=== PATIENT | male | born 1970 | race Caucasian/White ===

== ENCOUNTER → 2019-08-19 | Outpatient (CLI) | payer BC ==
[~2019-08-19] MED LIST: GBPN600T; HYDR-3583 PO; NAPR-243 PO; NF-ROPIN4T; TBR.3OP51 OP
== END ==
LOC: CARD 08:30
PROVIDERS: ATTEND Internal Medicine Cardiovascular Disease
DX: E78.5 Hyperlipidemia, unspecified (principal); I51.7 Cardiomegaly; R07.89 Other chest pain; Z82.49 Family history of ischemic heart disease and other diseases of the circulatory system
CPT/HCPCS: 93306

== ENCOUNTER → 2019-08-20 | Outpatient (CLI) | payer BC ==
[~2019-08-20] VITALS: Ht 175 cm; Wt 122.0 kg
[~2019-08-20] MED LIST changes: +CATHETER FLUSH 10 ML SYR IV PRN; +REGADENOSON 0.4 MG/5 ML SYR (LEXISCAN) IV ONE
[2019-08-20 09:14] VITALS: BP 147/100
--- NOTE | 2019-08-20 15:41 | STRESS TEST ---
DATE OF SERVICE: 08/20/2019 RESTING AND POST REGADENOSON TECHNETIUM-99M TETROFOSMIN SPECT CT IMAGING ORDERING PHYSICIAN: Dr. Mcclain. PRIMARY PHYSICIAN: Dr. Nixon. CLINICAL DIAGNOSIS: Chest discomfort, hypertension. Baseline images were carried out after injection of 10.14 mCi of technetium-99m Tetrofosmin. This was followed by 0.4 mg regadenoson and 29.9 mCi of technetium-99m Tetrofosmin for stress imaging. The electrocardiogram showed sinus rhythm at baseline. The electrocardiogram did not change significantly with the regadenoson infusion. The patient noted some shortness of breath, which resolved in a few minutes after the regadenoson infusion. Review of images at rest and following stress does not indicate any significant perfusion defects consistent with myocardial ischemia or infarction. Gated images show normal global left ventricular systolic function with normal regional wall motion. Left ventricular ejection fraction is calculated to be 52%. Left ventricular end diastolic volume is 119 mL. TID is absent (1.02). CONCLUSIONS: 1. No evidence of any significant myocardial ischemia or infarction on this study. 2. Normal global left ventricular systolic function with ejection fraction of 52%. 3. No regional wall motion abnormality. 4. Mild to moderate cardiomegaly. Job ID: [id number] DocumentID: [id number] Dictated Date: 08/20/2019 13:18:32 [employer] Machine Date: 08/20/2019 15:40:37 Dictated By: MARIELA MCCLAIN MD, MA, FACP, FACC,
== END ==
LOC: CARD 07:26
PROVIDERS: ATTEND Internal Medicine Cardiovascular Disease
DX: I11.9 Hypertensive heart disease without heart failure (principal); E78.5 Hyperlipidemia, unspecified; R07.89 Other chest pain; Z82.49 Family history of ischemic heart disease and other diseases of the circulatory system
CPT/HCPCS: 78452; 93017

== ENCOUNTER 2021-03-26 08:24 | Outpatient (CLI) | payer BC ==
[~2021-03-26 08:24] MED LIST changes: -CATHETER FLUSH 10 ML SYR IV PRN; -REGADENOSON 0.4 MG/5 ML SYR (LEXISCAN) IV ONE
== END 2021-03-26 08:55 ==
LOC: SLEEP 08:24
PROVIDERS: ATTEND Nurse Practitioner
DX: G47.33 Obstructive sleep apnea (adult) (pediatric) (principal)
CPT/HCPCS: G0399